=== PATIENT | female | born 1995 | race Caucasian/White ===

== ENCOUNTER 2018-11-13 20:41 | Emergency (ER) | payer MEDICAID ==
[~2018-11-13] VITALS: Ht 165.1 cm; Wt 77.1 kg
[2018-11-13 20:45] VITALS: BP_SYST 128
[2018-11-13 22:55] VITALS: BP_SYST 124
== END 2018-11-13 22:55 | disposition home or self-care (01) ==
LOC: SED 20:41
DX: T62.8X1A Toxic effect of other specified noxious substances eaten as food, accidental (unintentional), initial encounter (principal); F41.9 Anxiety disorder, unspecified; Z88.6 Allergy status to analgesic agent; Y92.89 Other specified places as the place of occurrence of the external cause
CPT/HCPCS: 99281